=== PATIENT | female | born 1995 | race African-American/Black ===

== ENCOUNTER 2021-06-06 17:24 | Emergency (ER) | payer OTHER ==
[~2021-06-06] VITALS: Ht 167.6 cm; Wt 61.0 kg
[2021-06-06] MEDS ORDERED: ACETAMINOPHEN 325MG TABLET PO ONE (21:15)
[2021-06-06] MEDS ORDERED: IBUPROFEN 800MG TABLET PO ONE (21:15)
[2021-06-06] MEDS ORDERED: IBUP-2030 MT (23:12)
[2021-06-06 23:53] VITALS: BP 121/78
== END 2021-06-06 23:55 | disposition home or self-care (01) ==
LOC: ER 17:24
DX: M25.531 Pain in right wrist (principal); Z98.890 Other specified postprocedural states; W01.0XXA Fall on same level from slipping, tripping and stumbling without subsequent striking against object, initial encounter; Y93.89 Activity, other specified; Y92.89 Other specified places as the place of occurrence of the external cause; Y99.8 Other external cause status
CPT/HCPCS: 72100; 73030; 73110; 73130; 81025; 99284

== ENCOUNTER 2021-12-08 14:43 | Emergency (ER) | payer MEDICAID, OTHER ==
[~2021-12-08] VITALS: Ht 167.6 cm; Wt 60.0 kg
[~2021-12-08 14:43] MED LIST: IBUP-2030 MT
[2021-12-08 14:48] VITALS: BP 121/77
== END 2021-12-08 16:45 | disposition left against medical advice (07) ==
LOC: ER 14:43
DX: Z53.21 Procedure and treatment not carried out due to patient leaving prior to being seen by health care provider (principal)

== ENCOUNTER 2023-07-10 21:30 | Emergency (ER) | payer SELFPAY ==
[~2023-07-10] VITALS: Ht 167.6 cm; Wt 61.0 kg
[2023-07-10 22:17] VITALS: BP 133/88; TEMP 100.1; O2SAT 98
[2023-07-11] MEDS: PENICILLIN G BENZATHINE 1,200,000 UNITS/2ML SYR IM ONE (00:40)
[2023-07-11] MEDS: DEXAMETHASONE 10 MG/ML VIAL IM ONE (00:41)
[2023-07-11] MEDS: LIDOCAINE HCL 1% 20ML VIAL (Pyxis) INJ INFIL ONE (00:41)
[2023-07-11] MEDS: KETOROLAC 60MG/2ML VIAL IM ONE (00:41)
[2023-07-11] MEDS ORDERED: NAPR220C61 MT (00:56)
[2023-07-11 01:26] VITALS: PULSE 101; RESP 18
== END 2023-07-11 01:27 | disposition home or self-care (01) ==
LOC: ER 21:30
DX: J02.9 Acute pharyngitis, unspecified (principal)
CPT/HCPCS: 99284; 87077; 87430; 87070; 96372; J0561; J1100; J1885; J3490